=== PATIENT | female | born 1975 | race Caucasian/White ===

== ENCOUNTER 2020-05-31 17:50 | Emergency (ER) | payer BC ==
[2020-05-31] MEDS ORDERED: cefTRIAXone 1 GM Vial IVPUSH ONE (17:57)
[2020-05-31] MEDS ORDERED: Sodium Chloride 0.9% 1,000 ML IV ONE (17:57)
[2020-05-31] MEDS ORDERED: Sodium Chloride 0.9% 10 ML Syringe FLUSH PRN (17:58)
[2020-05-31] MEDS ORDERED: Ondansetron 4 MG/2 ML SDV IVPUSH ONE (17:58)
--- NOTE | 2020-05-31 18:08 | EDM.PDOC ---
ED HPI GENERAL MEDICAL PROBLEM - General Chief Complaint: General Stated Complaint: CHILLS,SOB Time Seen by Provider: 05/31/20 17:55 Source of Information: Reports: Patient History Limitations: Reports: No Limitations - History of Present Illness INITIAL COMMENTS - FREE TEXT/NARRATIVE: Patient comes into the emergency department with complaints of fever. Patient has a longstanding history of bacteremia and hospitalization with septicemia and is concerned regarding her current symptoms. Patient states that she has been short of breath and fever for the last 3 days. Patient has been taken Tylenol and ibuprofen to help with the discomfort. She does have chills and nausea at times. Patient did have Covid approximately 6 months ago. States it does feel semi-similar to that circumstance. Patient states that if she is resting and does take the Tylenol she does feel better when that wears off she does start to notice the discomfort intensified. Onset: Gradual Location: Reports: Generalized Quality: Reports: Ache Severity: Moderate Improves with: Reports: Rest Worsens with: Reports: Movement Associated Symptoms: Reports: Fever/Chills, Headaches, Malaise, Nausea/Vomiting Right Lower Back Pain Score (Numeric/FACES): 5 - Related Data Allergies Allergy/AdvReac Type Severity Reaction Status Date / Time aspirin Allergy Airway Verified 05/31/20 19:37 Tightness cucumber Allergy Cannot Verified 05/31/20 19:37 Remember melon Allergy Cannot Verified 05/31/20 19:37 Remember Home Meds: Home Meds Baclofen 10 mg PO DAILY 05/31/20 [History] Liraglutide [Victoza 3-Be] 1.8 mg SQ DAILY 05/31/20 [History] Pregabalin [Lyrica] 225 mg PO TID 05/31/20 [History] amLODIPine [Norvasc] 10 mg PO DAILY 05/31/20 [History] atorvaSTATin [Lipitor] 10 mg PO BEDTIME 05/31/20 [History] hydroCHLOROthiazide [Hydrochlorothiazide] 25 mg PO DAILY 05/31/20 [History] metFORMIN HCl [Metformin HCl ER] 500 mg PO DAILY 05/31/20 [History] ED ROS GENERAL - Review of Systems Review Of Systems: Comprehensive ROS is negative, except as noted in HPI. Constitutional: Reports: Fever, Chills, Malaise, Fatigue, Decreased Appetite HEENT: Reports: No Symptoms Respiratory: Reports: No Symptoms Cardiovascular: Reports: No Symptoms Endocrine: Reports: No Symptoms GI/Abdominal: Reports: No Symptoms : Reports: No Symptoms Musculoskeletal: Reports: No Symptoms Skin: Reports: No Symptoms Neurological: Reports: No Symptoms Psychiatric: Reports: No Symptoms Hematologic/Lymphatic: Reports: No Symptoms Immunologic: Reports: No Symptoms ED EXAM, GENERAL - Physical Exam Exam: See Below Exam Limited By: No Limitations General Appearance: Alert, WD/WN, No Apparent Distress Eye Exam: Bilateral Eye: EOMI, PERRL Nose: Normal Inspection, Normal Mucosa Throat/Mouth: Normal Inspection, Normal Lips, Normal Teeth, Normal Voice Head: Atraumatic, Normocephalic Neck: Normal Inspection, Supple, Non-Tender Respiratory/Chest: No Respiratory Distress, Lungs Clear, Normal Breath Sounds, No Accessory Muscle Use, Chest Non-Tender Cardiovascular: Normal Peripheral Pulses, Regular Rate, Rhythm GI/Abdominal: Normal Bowel Sounds, Soft, Non-Tender, No Abnormal Bruit Back Exam: Normal Inspection, Full Range of Motion Extremities: Normal Inspection, Normal Range of Motion, Non-Tender, Pedal Edema Neurological: Alert, Oriented, CN II-XII Intact, Normal Gait Psychiatric: Normal Affect, Normal Mood Skin Exam: Warm, Dry, Intact #1 Interpretation EKG Date: 05/31/20 Rhythm: NSR [place]: Normal P-Wave: Present QRS: Normal ST-T: Normal QT: Normal Comparison: No Change Course - Vital Signs Last Recorded V/S: Last Vital Signs Temp 37.1 C 05/31/20 19:55 Pulse 80 05/31/20 19:55 Resp 18 05/31/20 19:55 BP 138/84 05/31/20 19:55 Pulse Ox 97 05/31/20 19:55 - Orders/Labs/Meds Orders: Active Orders 24 hr Category Date Time Status EKG Documentation Completion [RC] STAT Care 05/31/20 18:08 Active CULTURE BLOOD [BC] Stat Lab 05/31/20 18:13 Received CULTURE BLOOD [BC] Stat Lab 05/31/20 18:57 Received UA RFX SHALONDA AND CULT IF INDIC [URIN] Stat Lab 05/31/20 20:06 Ordered Sodium Chloride 0.9% [Saline Flush] Med 05/31/20 17:58 Active 10 ml FLUSH ASDIRECTED PRN Blood Culture x2 Reflex Set [OM.PC] Stat Oth 05/31/20 17:57 Ordered Peripheral IV Insertion Adult [OM.PC] Stat Ot 05/31/20 17:57 Ordered Medication Orders Sodium Chloride (Sodium Chloride 0.9% 10 Ml Syringe) 10 ml FLUSH ASDIRECTED PRN PRN Reason: Keep Vein Open Labs: Laboratory Tests 05/31/20 05/31/20 05/31/20 Range/Units 18:06 18:13 18:13 WBC 4.6 (4.0-10.0) x10^3/uL RBC 4.90 (4.00-5.50) x10^6/uL Hgb 15.5 (12.0-16.0) g/dL Hct 45.9 (33.0-47.0) % MCV 93.7 H (78.0-93.0) fL MCH 31.6 (26.0-32.0) pg MCHC 33.8 (32.0-36.0) g/dL RDW Coeff of Katelynn 13.6 (10.0-15.0) % Plt Count 163 (130-400) x10^3/uL Neut % (Auto) 72.3 (50.0-80.0) % Lymph % (Auto) 17.2 L (25.0-50.0) % Jackson % (Auto) 7.6 (2.0-11.0) % Eos % (Auto) 2.2 (0.0-4.0) % Baso % (Auto) 0.7 (0.2-1.2) % PT 10.4 (9.9-12.5) SEC INR 0.9 L (2.0-3.5) Sodium (136-145) mmol/L Potassium (3.5-5.1) mmol/L Chloride (98-107) mmol/L Carbon Dioxide (21-32) mmol/L Anion Gap (5-15) mmol/L BUN (7-18) mg/dL Creatinine (0.55-1.02) mg/dL Est Cr Clr Drug Dosing Estimated GFR (MDRD) Glucose (70-99) mg/dL Lactic Acid (0.4-2.0) mmol/L Calcium (8.5-10.1) mg/dL Corrected Calcium (8.5-10.1) mg/dL Total Bilirubin (0.2-1.0) mg/dL AST (15-37) U/L ALT (14-59) U/L Alkaline Phosphatase (46-116) U/L NT-Pro-B Natriuret Pep (<=125) pg/mL Total Protein (6.4-8.2) g/dL Albumin (3.4-5.0) g/dL Globulin Albumin/Globulin Ratio Influenza Type A RNA Negative (NEGATIVE) Influenza Type B RNA Negative (NEGATIVE) SARS-CoV-2 RNA ([place]) Negative (NEGATIVE) 05/31/20 05/31/20 Range/Units 18:13 18:13 WBC (4.0-10.0) x10^3/uL RBC (4.00-5.50) x10^6/uL Hgb (12.0-16.0) g/dL Hct (33.0-47.0) % MCV (78.0-93.0) fL MCH (26.0-32.0) pg MCHC (32.0-36.0) g/dL RDW Coeff of Katelynn (10.0-15.0) % Plt Count (130-400) x10^3/uL Neut % (Auto) (50.0-80.0) % Lymph % (Auto) (25.0-50.0) % Jackson % (Auto) (2.0-11.0) % Eos % (Auto) (0.0-4.0) % Baso % (Auto) (0.2-1.2) % PT (9.9-12.5) SEC INR (2.0-3.5) Sodium 138 (136-145) mmol/L Potassium 3.5 (3.5-5.1) mmol/L Chloride 100 (98-107) mmol/L Carbon Dioxide 28 (21-32) mmol/L Anion Gap 13.5 (5-15) mmol/L BUN 15 (7-18) mg/dL Creatinine 1.1 H (0.55-1.02) mg/dL Est Cr Clr Drug Dosing TNP Estimated GFR (MDRD) 53 Glucose 198 H (70-99) mg/dL Lactic Acid 1.7 (0.4-2.0) mmol/L Calcium 8.2 L (8.5-10.1) mg/dL Corrected Calcium 8.92 (8.5-10.1) mg/dL Total Bilirubin 0.2 (0.2-1.0) mg/dL AST 18 (15-37) U/L ALT 41 (14-59) U/L Alkaline Phosphatase 101 (46-116) U/L NT-Pro-B Natriuret Pep 186 H (<=125) pg/mL Total Protein 6.8 (6.4-8.2) g/dL Albumin 3.1 L (3.4-5.0) g/dL Globulin 3.7 Albumin/Globulin Ratio 0.84 Influenza Type A RNA (NEGATIVE) Influenza Type B RNA (NEGATIVE) SARS-CoV-2 RNA ([place]) (NEGATIVE) Meds: Medications Generic Name Dose Route Start Last Admin Trade Name Freq PRN Reason Stop Dose Admin Sodium Chloride 10 ml 05/31/20 17:58 Sodium Chloride 0.9% 10 Ml Syringe FLUSH ASDIRECTED PRN Keep Vein Open Discontinued Medications Generic Name Dose Route Start Last Admin Trade Name Freq PRN Reason Stop Dose Admin Ceftriaxone Sodium 1 gm 05/31/20 17:57 05/31/20 18:20 Ceftriaxone 1 Gm Vial IVPUSH 05/31/20 17:58 1 gm ONETIME ONE Administration Sodium Chloride 1,000 mls @ 1,000 mls/hr 05/31/20 17:57 05/31/20 18:20 Normal Saline IV 05/31/20 18:56 1,000 mls/hr ONETIME ONE Administration Ondansetron HCl 4 mg 05/31/20 17:58 05/31/20 18:20 Ondansetron 4 Mg/2 Ml Sdv IVPUSH 05/31/20 17:59 4 mg ONETIME ONE Administration Departure - Departure Time of Disposition: 20:25 Disposition: Home, Self-Care 01 Condition: Good Clinical Impression: Gastroenteritis - Discharge Information *PRESCRIPTION DRUG MONITORING PROGRAM REVIEWED*: Not Applicable *COPY OF PRESCRIPTION DRUG MONITORING REPORT IN PATIENT CECILIA: Not Applicable Instructions: Viral Gastroenteritis, Adult, [id number] Referrals: Katty Durand MD [Primary Care Provider] - Forms: ED Department Discharge Additional Instructions: 1. rest 2. increase your water intake 3. Continue all at home medications 4. Activity and diet as tolerated 5. Can take over the counter Tylenol for any pain or discomfort 6. Follow up with PCP if symptoms continue, return, or progress 7. Call with any questions or concerns Sepsis Event Note (ED) - Focused Exam Vital Signs: Vital Signs Temp Pulse Resp BP Pulse Ox 05/31/20 19:55 37.1 C 80 18 138/84 97 05/31/20 17:55 36.4 C 99 18 151/82 H 94 L - My Orders Last 24 Hours: My Active Orders 05/31/20 17:57 Blood Culture x2 Reflex Set [OM.PC] Stat Peripheral IV Insertion Adult [OM.PC] Stat 05/31/20 17:58 Sodium Chloride 0.9% [Saline Flush] 10 ml FLUSH ASDIRECTED PRN 05/31/20 18:08 EKG Documentation Completion [RC] STAT 05/31/20 18:13 CULTURE BLOOD [BC] Stat 05/31/20 18:57 CULTURE BLOOD [BC] Stat 05/31/20 20:06 UA RFX SHALONDA AND CULT IF INDIC [URIN] Stat - Assessment/Plan Last 24 Hours: My Active Orders 05/31/20 17:57 Blood Culture x2 Reflex Set [OM.PC] Stat Peripheral IV Insertion Adult [OM.PC] Stat 05/31/20 17:58 Sodium Chloride 0.9% [Saline Flush] 10 ml FLUSH ASDIRECTED PRN 05/31/20 18:08 EKG Documentation Completion [RC] STAT 05/31/20 18:13 CULTURE BLOOD [BC] Stat 05/31/20 18:57 CULTURE BLOOD [BC] Stat 05/31/20 20:06 UA RFX SHALONDA AND CULT IF INDIC [URIN] Stat Assessment:: 1. fever 2. Gastroenteritis Plan: 1. Sepsis protocol initiated and followed 2. Labs completed in the ER. Results reviewed with the patient 3. Blood cultures completed 4. IV initiated in the emergency department 5. IV fluids provided 6. EKG completed in ER. 7. Rocephin 1gm given 8. Covid-19 completed-negative 10. Influenza screen completed- negative 11. Patient and nursing staff was updated regarding the plan of care 12. Patient and family are agreeable to the above plan of care 13. All questions and concerns were addressed with the patient and family prior to discharge
[2020-05-31 19:03] LABS: CHLORIDE,CL 100 mmol/L (98-107); SODIUM,NA 138 mmol/L (136-145)
[2020-05-31 19:05] LABS: ANION GAP 13.5 mmol/L (5-15)
[2020-05-31 19:13] LABS: CORONAVIRUS COVID-19 NAA NEGATIVE (NEGATIVE)
--- NOTE | 2020-05-31 19:18 | CT ---
[id number] CT/CT Abdomen Pelvis WO IV EXAM: CT Abdomen Pelvis WO IV CLINICAL DATA: FLANK PAIN COMPARISON STUDY: None. FINDINGS: Lung bases are clear. The liver, spleen, pancreas, and right adrenal gland are unremarkable. 1.9 cm left adrenal nodule. This has an average Hounsfield unit of less than 10 consistent with an adenoma. The left kidney is surgically absent. The right kidney is unremarkable. No renal calculi are identified. No hydronephrosis or hydroureter. The urinary bladder is underdistended. The wall thickening is likely related to underdistention. No bowel obstruction or inflammation. Colonic diverticulosis without evidence of acute diverticulitis. No lymphadenopathy, free fluid, or pneumoperitoneum. Fat-containing ventral hernia with minimal inflammatory change. No evidence of incarceration at this time. Intrauterine device in place. Spinal stimulator in place. Postsurgical changes of the lumbosacral spine. Scattered changes of spondylosis the spine. No fracture or osseous lesion. IMPRESSION: 1. No evidence of obstructing stone within the urinary tract. Bo Salas DO 05/31/201917 Thank you for allowing us to participate in the care of your patient.
== END 2020-05-31 20:18 | disposition home or self-care (01) ==
LOC: VM.ED 17:50
DX: K52.9 Noninfective gastroenteritis and colitis, unspecified (principal); Z20.822 Contact with and (suspected) exposure to COVID-19; Z88.6 Allergy status to analgesic agent; Z91.018 Allergy to other foods; Z79.899 Other long term (current) drug therapy
CPT/HCPCS: 0240U; 36415; 74176; 80053; 81002; 83605; 83880; 85025; 85610; 87040; 93005; 93010; 96374; 96375; 99284; 99285-25; J0696; J2405; J7030